=== PATIENT | female | born 1985 | race African-American/Black ===

== ENCOUNTER 2018-08-22 14:46 | Inpatient (IN) ==
[2018-08-22] MEDS ORDERED: ONDANSETRON 4 MG/2 ML VIAL IV PRN (15:08)
[2018-08-22] MEDS ORDERED: DINOPROSTONE VAG GEL 10 MG SYRINGE VAG ONE (15:11)
[2018-08-22 15:31] LABS: Basophils % 0.3 % (0.0-0.8); Eosinophils % 0.2 % (0.00-10.9); Hematocrit 37.7 VOL% (35.7-47.0); Hemoglobin 12.2 GM/DL (12.0-16.0); Immature Granulocytes Absolute 0.09 #; Lymphocytes # 1.5 10*3/uL (1.4-4.0); Lymphocytes % 16.9 % (21.3-54.2); Mean Corpuscular HGB Conc 32.4 GM/DL (32-36); Mean Corpuscular Volume 89.5 FL (87-102); Mean Platelet Volume 10.9 FL (9.6-12.0); Neutrophils % 74.6 % (38.7-73.9); Platelet Count 207 T/CUMM (130-400); Red Blood Count 4.21 MC/CUMM (3.8-5.5); Red Cell Distribution Width 14.1 % (9.3-17.3); White Blood Count 9.1 T/CUMM (4-12)
[2018-08-22 15:47] LABS: Bilirubin,Total 0.4 MG/DL (0.2-1.0); Calcium 9.5 MG/DL (8.5-10.1); Osmolality,Calculated 267.1 MOS/KG (273-304); Total Protein 7.1 G/DL (6.4-8.3)
[2018-08-22 15:58] LABS: Lymphocytes 18 % (20-55); Microcytosis 1+; Platelet Estimate Normal; Segmented Neutrophils 75 % (50-85); Total Cells Counted 100
[2018-08-22 15:59] LABS: Anisocytosis Slight; Ovalocytes Slight; Poikilocytosis Slight
[2018-08-22] MEDS: LACTATED RINGERS 1,000 ML IV SCH ×2 (15:59→19:18)
[2018-08-23] MEDS ORDERED: OXYTOCIN/LR 20 UNIT/1,000 ML BAG IV SCH (02:00)
[2018-08-23] MEDS ORDERED: OXYTOCIN/LR 20 UNIT/1,000 ML BAG IV ONE ×2 (03:28→21:09)
[2018-08-23] MEDS: LACTATED RINGERS 1,000 ML IV SCH ×4 (03:46→21:27)
[2018-08-23] MEDS ORDERED: LACTATED RINGERS 1,000 ML IV ONE (11:18)
[2018-08-23] MEDS ORDERED: ePHEDrine 50 MG/ML AMP IV PRN (11:18)
[2018-08-23] MEDS ORDERED: FAMOTIDINE 20 MG/2 ML VIAL IV ONE (11:18)
[2018-08-23] MEDS ORDERED: CITRIC ACID/SODIUM CITRATE 30 ML UDCUP PO ONE (11:18)
[2018-08-23] MEDS ORDERED: PROMETHAZINE 25 MG/1 ML VIAL IM ONE (11:19)
[2018-08-23] MEDS ORDERED: hydrOXYzine HCL 25 MG/1 ML VIAL IM PRN (11:19)
[2018-08-23] MEDS ORDERED: diphenhydrAMINE 50 MG/1 ML VIAL IV PRN ×2 (11:19)
[2018-08-23] MEDS ORDERED: NALOXONE 0.4 MG/ML VIAL IV PRN (11:19)
[2018-08-23] MEDS ORDERED: fentaNYL 2 MCG/ROPIV 0.2% EPID 100 ML EPIDURAL SCH (11:30)
[2018-08-23] MEDS ORDERED: CITRIC ACID/SODIUM CITRATE 30 ML UDCUP ONE (11:40)
[2018-08-23] MEDS ORDERED: fentaNYL 2 MCG/ROPIV 0.2% EPID 100 ML EPIDURAL ONE (11:41)
[2018-08-23] MEDS ORDERED: ePHEDrine 50 MG/ML AMP ONE (11:41)
[2018-08-23 15:06] LABS: Apearance,Urine Clear (Clear); Glucose,Urine (UA) Negative (Negative); Ketones,Urine 100 mg/dL (Negative); Nitrite,Urine Negative (Negative); Protein,Urine Negative; Urine Color Yellow (Yellow)
[2018-08-23 15:07] LABS: Bilirubin,Urine Negative (Negative); Blood, Urine Negative (Negative); Urine Urobilinogen 0.2 EU/DL (0.2-1.0)
[2018-08-23] MEDS ORDERED: ceFAZolin 2,000 MG in PREMIX 1 EACH IV ONE (16:16)
[2018-08-23] MEDS ORDERED: OXYTOCIN/LR 30 UNIT/1,000 ML BAG IV ONE (17:00)
[2018-08-23] MEDS ORDERED: OXYTOCIN 10 UNIT/ML VIAL IM ONE (17:00)
[2018-08-23 18:06] LABS: Cord Arterial Blood HCO3 17.4 MMOL/L
[2018-08-23 18:09] LABS: Cord Venous Blood HCO3 19.1 MMOL/L; Cord Venous Blood PCO2 38.8 MMHG; Cord Venous Blood PO2 34.3
[2018-08-23] MEDS ORDERED: ONDANSETRON 4 MG/2 ML VIAL ONE (18:15)
[2018-08-23] MEDS ORDERED: LIDOCAINE MPF 2% /EPI 20 ML VIAL ONE (18:15)
[2018-08-23] MEDS ORDERED: PHENYLEPHRINE 1 MG/10 ML SYRINGE IV ONE (18:16)
[2018-08-23] MEDS ORDERED: HYDROmorphone 2 MG/1 ML VIAL IV PRN (19:23)
[2018-08-23] MEDS ORDERED: MAGNESIUM HYDROXIDE SUSP 30 ML UDCUP PO PRN (21:09)
[2018-08-23] MEDS ORDERED: ACETAMINOPHEN 325 MG TABLET PO PRN (21:09)
[2018-08-23] MEDS ORDERED: RHO(D) IMMUNE GLOBULIN 300 MCG SYRINGE IM ONE (21:09)
[2018-08-23] MEDS ORDERED: LACTATED RINGERS 1,000 ML IV SCH (21:30)
[2018-08-23] MEDS: DOCUSATE SODIUM 100 MG CAPSULE PO SCH (21:34)
[2018-08-23] MEDS: IBUPROFEN 800 MG TABLET PO PRN (21:34)
[2018-08-24 01:18] LABS: Basophils % 0.2 % (0.0-0.8); Eosinophils % 0.1 % (0.00-10.9); Hematocrit 29.9 VOL% (35.7-47.0); Hemoglobin 9.7 GM/DL (12.0-16.0); Immature Granulocytes % 0.9 %; Immature Granulocytes Absolute 0.08 #; Lymphocytes # 1.2 10*3/uL (1.4-4.0); Lymphocytes % 13.1 % (21.3-54.2); Mean Corpuscular HGB Conc 32.4 GM/DL (32-36); Mean Corpuscular Volume 89.8 FL (87-102); Mean Platelet Volume 10.2 FL (9.6-12.0); Monocytes % 6.9 % (1.7-12.7); Neutrophils % 78.8 % (38.7-73.9); Platelet Count 164 T/CUMM (130-400); Red Blood Count 3.33 MC/CUMM (3.8-5.5); Red Cell Distribution Width 14.1 % (9.3-17.3); White Blood Count 9.4 T/CUMM (4-12)
[2018-08-24] MEDS: LACTATED RINGERS 1,000 ML IV SCH ×3 (05:30→05:32)
[2018-08-24] MEDS: DOCUSATE SODIUM 100 MG CAPSULE PO SCH ×2 (08:26→20:41)
[2018-08-24] MEDS: MULTIVITAMIN (PRENATAL) TABLET PO SCH (08:26)
[2018-08-24] MEDS: SIMETHICONE CHEW 80 MG TABLET PO PRN (08:26)
[2018-08-24] MEDS: IBUPROFEN 800 MG TABLET PO PRN (08:28)
[2018-08-24] MEDS: METOCLOPRAMIDE 10 MG TABLET PO SCH (16:08)
[2018-08-24] MEDS: MAGNESIUM HYDROXIDE SUSP 30 ML UDCUP PO SCH (20:41)
[2018-08-25] MEDS: METOCLOPRAMIDE 10 MG TABLET PO SCH ×2 (00:10→08:42)
[2018-08-25 07:52] VITALS: BP 105/63
[2018-08-25] MEDS: MULTIVITAMIN (PRENATAL) TABLET PO SCH (08:39)
[2018-08-25] MEDS: DOCUSATE SODIUM 100 MG CAPSULE PO SCH (08:39)
[2018-08-25] MEDS: MAGNESIUM HYDROXIDE SUSP 30 ML UDCUP PO SCH (08:42)
[2018-08-25] MEDS: SIMETHICONE CHEW 80 MG TABLET PO PRN (08:43)
[2018-08-25] MEDS ORDERED: MAGNESIUM CITRATE 300 ML BOTTLE PO ONE (09:48)
[2018-08-25] MEDS ORDERED: ACETAMINOPHEN/CODEINE 300-30 MG TABLET ONE (12:14)
[2018-08-25] MEDS ORDERED: ACETAMINOPHEN/CODEINE 300-30 MG TABLET PO PRN (12:15)
[2018-08-25] MEDS: IBUPROFEN 800 MG TABLET PO PRN (12:15)
== END 2018-08-25 13:55 | disposition home or self-care (01) | DRG 788 ==
LOC: N.LDOUT 14:46 → N.LD 14:52 → N.OB 08-24 10:56
PROVIDERS: ADMIT Obstetrics & Gynecology; ATTEND Obstetrics & Gynecology
PROC: LDCSECT (ICD-10-PCS; 2018-08-23 16:50)